=== PATIENT | female | born 2000 | race American Indian/Alaskan Native ===

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

== ENCOUNTER → 2019-05-21 16:19 | Outpatient (CLI) | payer OTHER, MEDICAID, SELFPAY ==
[2019-05-21 17:32] LABS: ALB/GLOB Ratio 0.9 RATIO (0.9-2.4); AST(SGOT) 16 U/L (15-37); Alanine Aminotransfer ALT/SGPT 20 U/L (13-56); Albumin, Serum 4.2 g/dL (3.2-5.0); Alkaline Phosphatase 83 U/L (45-117); Anion Gap 8 (5-15); BUN 16 mg/dL (7-18); BUN/Creat Ratio 19.4 RATIO (10-20); Calcium,Total 9.3 mg/dL (8.5-10.1); Chloride 106 mmol/L (98-107); Creatinine, Serum 0.82 mg/dL (0.55-1.02); EST Glomerular Filtration Rate 94 mL/min (>60); Est Glom Filt Rate - Afr Amer 113 mL/min (>60); Globulin 4.9 g/dL (2.2-4.2); Glucose 90 mg/dL (74-106); Potassium 3.6 mmol/L (3.5-5.1); Protein, Total 9.1 g/dL (6.4-8.2); Sodium Level 140 mmol/L (136-145)
[2019-05-24 10:34] LABS: Hepatitis B Surface Antigen Non-Reactive (Nonreactive); Hepatitis C Antibody Non-Reactive (Nonreactive)
[2019-05-24 10:35] LABS: Hepatitis B Surface Antibody Non-Reactive
[2019-05-25 09:56] LABS: Hepatitis Be Ab Negative (Negative)
[2019-05-26 12:07] LABS: Hepatitis B Core Ab Total Negative (Negative)
== END ==
PROVIDERS: Family Provider Pediatrics; PCP Pediatrics; Referring Provider Pediatrics; Visit Provider Pediatrics
DX: R79.9 Abnormal finding of blood chemistry, unspecified (principal)
CPT/HCPCS: 36415; 80053; 86704; 86706; 86707; 86803; 87340

== ENCOUNTER → 2019-10-14 | Outpatient (CLI) | payer OTHER, MEDICAID, SELFPAY ==
[2019-10-14 13:04] VITALS: BMI 23.6
[2019-10-14 18:04] LABS: Chlamydia Trachomatis by PCR Negative (Negative); Neisserai gonorrhoeae by PCR Negative (Negative); Probe Check PASS; Sample Adequacy Control PASS; Specimen Processing Control PASS
== END | disposition home or self-care (01) ==
LOC: LABSPEC 15:55
PROVIDERS: PCP Pediatrics; Referring Provider Nurse Practitioner Women's Health; Visit Provider Nurse Practitioner Women's Health
DX: Z12.4 Encounter for screening for malignant neoplasm of cervix (principal)
CPT/HCPCS: 87491; 87591

== ENCOUNTER → 2020-12-07 | Outpatient (CLI) | payer OTHER, MEDICAID, SELFPAY ==
[2020-12-07 08:50] VITALS: BMI 25.2
[2020-12-11 16:06] LABS: HPV Reflexed? NOT INDICATED
== END | disposition home or self-care (01) ==
LOC: LABSPEC 12:25
PROVIDERS: PCP Pediatrics; Referring Provider Nurse Practitioner Women's Health; Visit Provider Nurse Practitioner Women's Health
DX: Z12.4 Encounter for screening for malignant neoplasm of cervix (principal)
CPT/HCPCS: 88175; G0145

== ENCOUNTER → 2023-06-27 | Outpatient (CLI) | payer OTHER, SELFPAY ==
--- NOTE | 2023-06-27 07:40 | RDU_ITS ---
Reason For Study: Hypertension Right Renal Artery Left Renal Artery Right renal artery ostium 113.3/32 Left renal artery ostium 130.8/36.4 RSV/EDV. PSV/EDV. Right renal artery proximal Left renal artery proximal PSV/EDV 152.7/46.8 PSV/EDV. 165.9/56.2 . Right renal artery mid 151/49.9 Left renal artery mid 150.4/47.1 PSV/EDV. PSV/EDV . Right renal artery distal Left renal artery distal 163/59.3 125.3/48.6 PSV/EDV. PSV/EDV. Right Renal Parenchyma Left Renal Parenchyma Upper Pole Medula 24.5/7.5 PSV/EDV. Left upper pole medulla 37.3/15.4 Right upper pole medulla EDR 0.3 . PSV/EDV . Right upper pole medulla R.I. Left upper pole medulla EDR 0.4 . 0.70 . Left upper pole medulla R.I. 0.59 . Upper Jose L Cortx 16.3/6.4 PSV/EDV. UP Cortex 24.6/10.9 PSV/EDV. Right upper pole cortex EDR 0.4 . Left upper pole cortex EDR 0.4 . Right upper pole cortex R.I. 0.61 . Left upper pole cortex R.I. 0.56 . Right lower Pole medulla 26.7/10.8 Left lower Pole medulla 30.9/13.6 PSV/EDV . PSV/EDV . Right lower pole medulla EDR 0.4 . Left lower pole medulla EDR 0.4 . Right lower pole medulla R.I. Left lower pole medulla R.I. 0.56 . 0.60 . Lower Pole Cortx 21.8/10 PSV/EDV. Lower Pole Cortex 11.9/5.3 PSV/EDV. Left lower pole cortex EDR 0.4 . Right lower pole cortex EDR 0.4 . Left lower pole cortex R.I. 0.54 . Right lower pole cortex R.I. 0.56 . Left Renal Hilar Right Renal Hilar LT Hilar avg 54.2/20.4 PSV/EDV . Right Hilar avg 68.1/22.5 PSV/EDV. Left hilar acceleration time 40 Right hilar acceleration time 60 m/sec. m/sec. Left Renal Dimensions Right Renal Dimensions Left kidney size 11.21 cm . Right kidney size 11.1 cm . Left cortical dimension 2.05 cm . Right cortical dimension 1.11 cm . Aorta Proximal abdominal aorta 1.61 x 1.72 cm . Proximal abdominal aorta peak systolic velocity is 168.2 cm/sec . Distal abdominal aorta 1.23 x 1.21 cm . Distal abdominal aorta peak systolic velocity is 133 cm/sec . VL/Renal Artery Duplex Ultrasound Interpretation Summary Based upon absolute velocity less than 60% stenosis bilateral renal arteries Abdominal aorta is of maximum diameter 1.61 x 1.72 cm. Aortic velocity is elevated 168.2 cm/s of undetermined etiology. Right renal length is maintained normal at 11.1 cm Left renal length is maintained normal at 11.2 cm Ordering Physician: AUGUSTIN FLORES Performed By: Beatriz Wallace RVT
== END | disposition home or self-care (01) ==
LOC: CVS 07:39
DX: I10 Essential (primary) hypertension (principal)
CPT/HCPCS: 93975